=== PATIENT | male | born 1960 | race Two or more races ===

== ENCOUNTER → 2024-02-12 | Outpatient (CLI) | payer MEDICAID, SELFPAY ==
--- NOTE | 2024-02-12 15:38 | XR_ITS ---
Examination: Wrist, right 3 views Technique: Wrist AP, oblique, lateral 3 views Date and time of exam: February 12, 2024 1547 hours INDICATIONS: Injury to the hands and wrists 17 days ago, wrist pain FINDINGS: Moderate osteopenia Mild narrowing navicular trapezium first carpometacarpal joints No acute fracture No dislocation No foreign body IMPRESSION: No acute fracture
--- NOTE | 2024-02-12 15:38 | XR_ITS ---
Examination: Hand, right 3 views Technique: Hand AP, oblique, lateral 3 views Date and time of exam: February 12, 2024 1557 hours INDICATIONS: Injury to the hand 17 days ago with hand pain FINDINGS: Moderate osteopenia No acute fracture No dislocation No foreign body IMPRESSION: No acute fracture
== END | disposition home or self-care (01) ==
DX: S69.91XA Unspecified injury of right wrist, hand and finger(s), initial encounter (principal); X58.XXXA Exposure to other specified factors, initial encounter
CPT/HCPCS: 73110; 73130